=== PATIENT | male | born 1995 | race Caucasian/White ===

== ENCOUNTER 2023-05-04 13:04 | Emergency (ER) | payer SELFPAY ==
[2023-05-04 13:12] VITALS: BP 119/86; PULSE 84; RESP 16; TEMP 36.6; O2SAT 98; BMI 33.0
--- NOTE | 2023-05-04 13:17 | DI.RAD.S_ITS ---
PROCEDURE: XR KNEE RT 3V INDICATIONS: knee pain after slipping TECHNIQUE: 3 views of the knee were acquired. COMPARISON: None. FINDINGS: Bones: There is prior ACL reconstruction with postsurgical changes. Right knee alignment is anatomic. No abnormal anterior tibial translation. No fractures or dislocations. No patellar subluxation. No suspicious bony lesions. Soft tissues: Moderate suprapatellar joint effusion. No suspicious soft tissue calcifications. IMPRESSION: No gross acute right knee fracture or dislocation. Moderate suprapatellar joint effusion. Prior ACL reconstruction. Dictated by: John Chung M.D. on 05/04/2023 at 14:23 Approved by: John Chung M.D. on 05/04/2023 at 14:25
--- NOTE | 2023-05-04 16:01 | ED_ITS ---
HPI - Extremity Injury (Lower) General Chief Complaint: Extremity Injury, Lower Stated Complaint: tore ACL Time Seen by Provider: 05/04/23 16:01 Source: patient Mode of arrival: Ambulatory History of Present Illness HPI Narrative: Patient is a 27-year-old male. He states yesterday he tripped on a dock and twisted his right knee. He is concerned that maybe he is torn his ACL. He is torn his ACL in the past. Has had reconstruction on this knee. He reports no other injuries from the event. Since that time he has quite a bit of swelling, pain with standing and instability. Sat difficulty walking because of the discomfort. Related Data Previous Rx's Medication Instructions Recorded ibuprofen 600 mg tablet 600 mg PO TID PRN pain #90 tabs 05/04/23 Allergies Allergy/AdvReac Type Severity Reaction Status Date / Time oxycodone Allergy Hives Verified 05/04/23 13:12 Review of Systems Constitutional Constitutional: Reports system reviewed and no additional complaints, except as documented Musculoskeletal Musculoskeletal: Reports system reviewed and no additional complaints, except as documented Integumentary/Breasts Skin/Breast: Reports system reviewed and no additional complaints, except as documented Patient History Social History Smoking Status: Current every day smoker Smoking Status: Current every day smoker tobacco type: vaping alcohol intake frequency: holidays/special occasions only Substance Use Type: does not use Exam Initial Vital Signs Initial Vital Signs: Vital Signs Temperature 97.9 F 05/04/23 13:12 Pulse Rate 84 05/04/23 13:12 Respiratory Rate 16 05/04/23 13:12 Blood Pressure 119/86 05/04/23 13:12 Pulse Oximetry 98 05/04/23 13:12 Oxygen Delivery Method Room Air 05/04/23 13:12 Skin General: no rashes or lesions noted Neuro General: patient alert, patient awake and moves all extremities Extrem Other: Patient has swelling to his right knee consistent with an effusion. His quadriceps tendon patellar tendon appeared to be intact. He can do a straight leg raise. I do have some concern about an ACL tear because he does not have a definitive endpoint with Danielito's test however this can be skewed somewhat because of the swelling he is having and also the prior ACL reconstruction. Is MCL/PCL and LCL all seem to be intact with testing. Course Orders Ordered: ED Orders 05/04/23 13:17 XR knee RT 3V Stat Vital Signs Vital signs: Vital Signs - 8 hr 05/04/23 13:12 05/04/23 16:20 Temperature 97.9 F Pulse Rate 84 86 Respiratory Rate 16 18 Blood Pressure 119/86 140/75 Pulse Oximetry 98 96 Oxygen Delivery Method Room Air Room Air MDM - Extremity Injury (Lower) Imaging Data Extremity x-ray #1: Radiologist's Impression: PROCEDURE: XR KNEE RT 3V INDICATIONS: knee pain after slipping TECHNIQUE: 3 views of the knee were acquired. COMPARISON: None. FINDINGS: Bones: There is prior ACL reconstruction with postsurgical changes. Right knee alignment is anatomic. No abnormal anterior tibial translation. No fractures or dislocations. No patellar subluxation. No suspicious bony lesions. Soft tissues: Moderate suprapatellar joint effusion. No suspicious soft tissue calcifications. IMPRESSION: No gross acute right knee fracture or dislocation. Moderate suprapatellar joint effusion. Prior ACL reconstruction. [facility] Narrative Medical decision making narrative: Neurovascularly intact, x-ray shows no fracture. Has an obvious effusion to his right knee. I do have some concern about an ACL disruption however there is no indication for emergent MRI today. He can walk in his leg as tolerated. He was provided crutches. We discussed support that he could use. Recommend conservative treatment for now and follow-up with orthopedic surgery and potentially will need for advanced imaging. He expressed understanding and agreement plan. Discharge Plan Departure Patient Disposition: Home Clinical Impression: Effusion of right knee Instructions: How to Use Crutches, How To Perform RICE (Rest, Ice, Compress, Elevate), How to Apply an Elastic Wrap on Knee Activity Restrictions/Additional Instructions: The x-ray did not show any signs of a fracture so you can walk on your right leg as tolerated however recommend using the elastic bandage/knee brace in the crutches as needed. Also recommend that you contact the orthopedic providers with the number provided below for follow-up. Return to the emergency department for new symptoms. Prescriptions: New ibuprofen 600 mg tablet 600 mg PO TID PRN (Reason: pain) Qty: 90 0RF Referrals: Franklyn Chapa MD [Physician] - Stand Alone Forms: Patient Portal/API, Work Release Note
[2023-05-04 16:20] VITALS: BP 140/75; PULSE 86; RESP 18; O2SAT 96
== END 2023-05-04 16:25 | disposition home or self-care (01) ==
PROVIDERS: Emergency Provider Emergency Medicine
DX: M25.461 Effusion, right knee (principal)
CPT/HCPCS: 73562; 99283